=== PATIENT | female | born 1955 | race Two or more races ===

== ENCOUNTER → 2021-03-31 | Emergency (ER) | payer OTHER ==
[~2021-03-31] VITALS: Ht 170.2 cm; Wt 69.9 kg
[~2021-03-31] MED LIST: ASPIRIN81 MG PO; CIPRO500 MG PO; COZAAR100 MG; FLAGYL500MG PO; PEPCID AC20 MG PO; [UNRECOGNIZED DRUG - OTHER]
== END | disposition home or self-care (01) ==
LOC: ER 18:28 → EDBD 20:43
DX: K29.70 Gastritis, unspecified, without bleeding (principal)

== ENCOUNTER 2021-04-07 07:30 | Emergency (ER) | payer OTHER ==
[~2021-04-07] VITALS: Ht 160 cm; Wt 84.4 kg
[~2021-04-07 07:30] MED LIST changes: -ASPIRIN81 MG PO; -CIPRO500 MG PO; -FLAGYL500MG PO; -PEPCID AC20 MG PO; -[UNRECOGNIZED DRUG - OTHER]
[2021-04-07] MEDS ORDERED: ASPIRIN81 MG PO (07:42)
[2021-04-07] MEDS ORDERED: [UNRECOGNIZED DRUG - OTHER] (07:43)
[2021-04-07] MEDS ORDERED: CIPRO500 MG PO (18:49)
[2021-04-07] MEDS ORDERED: PEPCID AC20 MG PO (18:49)
[2021-04-07] MEDS ORDERED: FLAGYL500MG PO (18:49)
== END 2021-04-07 18:58 | disposition home or self-care (01) ==
LOC: ER 07:30
DX: K62.5 Hemorrhage of anus and rectum (principal); K51.30 Ulcerative (chronic) rectosigmoiditis without complications; K57.30 Diverticulosis of large intestine without perforation or abscess without bleeding; Z03.818 Encounter for observation for suspected exposure to other biological agents ruled out